=== PATIENT | male | born 1960 | race Caucasian/White ===

== ENCOUNTER 2016-06-22 22:07 | Emergency (ER) | payer BC ==
--- NOTE | ~2016-06-22 | EKG ---
PATIENT: MONE BONNER UNIT #: [id number] Ventricular Rate: 90 BPM Atrial Rate: 90 BPM P-R Interval: 172 ms QRS Duration: 98 ms Q-T Interval: 336 ms QTC Calculation(Bezet): 411 ms P [place]: 51 degrees Calculated R [place]: 88 degrees Calculated T [place]: 49 degrees Diagnosis Line: Normal sinus rhythm Diagnosis Line: Normal ECG Diagnosis Line: When compared with ECG of 15-OCT-2013 19:39, Diagnosis Line: Questionable change in QRS duration Diagnosis Line: Confirmed by IRMA CAR MD ([id number]) on Diagnosis Line: 06/25/2016 12:03:24 PM INTERPRETING MD: JOCELINE HERNANDEZ
--- NOTE | ~2016-06-22 | CR63 ---
[facility] A Service of [facility] RADIOLOGY TEXT RESULTS PATIENT: MONE BONNER LOCATION: SED : 58 UNIT #: [id number] AGE: [address]: Miles Olivia MD SEX: M ORDER DR: [id number] [place] [address] [id number] E MR#: [id number] Acc #: [id number] NAME: MONE BONNER : 1960 SEX: M STUDY DATE/TIME: 06/22/2016 22:44 UNIT: SED ROOM: STUDY DESCRIPTION: CR Chest 2 View Attending Physician: Miles Olivia M.D. Ordering Physician: Miles Olivia M.D. Primary Care Physician: Primary Care Physician No MEDICAL IMAGING REPORT This report is preliminary unless electronic signature is present. EXAM Two-view chest HISTORY Cough x1 month, fever. COMPARISON 10/15/2013 FINDINGS 2 views of the chest demonstrates right middle lobe infiltrate with obscuration of a portion of the right heart border. Left lung remains clear. Heart, mediastinum, great vessels and bony thorax appear normal. Partially visualized is lower cervical spine fixation instrumentation. IMPRESSION Right perihilar prominence with a patchy right middle lobe infiltrate. Findings most compatible with acute infectious pneumonia. Recommend clinical and radiographic follow up to resolution. Dictated by... Rj Quinones M.D. THIS IS AN ELECTRONICALLY VERIFIED REPORT Rj Quinones M.D. at 06/23/2016 2:04 PM SIDDHARTHAS/maurisio TD: 06/22/2016 23:29 JOB #: [id number] MEDICAL IMAGING REPORT [facility] A Service of [facility] RADIOLOGY TEXT RESULTS PATIENT: MONE BONNER LOCATION: SED : 58 UNIT #: [id number] AGE: [address]: Miles Olivia MD SEX: M ORDER DR: Page 1 of 1
[~2016-06-22 22:07] MED LIST: ALB/IPRATROPIUM/1 E1 INH; ALBUTEROL 0.5ML INH; ASPIRIN81 M1 PO; BENZONATATE PO; CIPRO PO; FIORICET PO; FLAGYL PO; FLEXERIL10 MG PO; HCTZ; HYDROCHLOROTHIA25 MG PO; IBUPROFEN800 MG PO; KEFLEX PO; LIPITOR; LISINOPRIL; LISINOPRIL PO; LOPRESSOR; LOPRESSOR PO; LORTAB 5/500 TA1 TA1 PO; METOPROLOL-HCTZ1 TA1 PO; METOPROLOL/HCTZ PO; NO MEDICATIONS; NORCO 10/3251 TAB PO; NORVASC; PEN-VEE K PO; PRAVACHOL20 MG PO; PREDNISONE PO; ROBITUSSIN ALL118 ML PO; SILVADENE TOP; SIMVASTATIN20 MG PO; TOPAMAX25 MG DOB; VICODIN 5/1 TAB 5/50 PO; ZESTRIL10 M1 PO; ZITHROMAX PO
[2016-06-22 22:44] LABS: BASOPHIL% 0.4 % (0-2.5); DIFF IND NO; EOSINOPHIL% 0.4 % (0.0-7.0); HEMATOCRIT 38.9 % (38.0-50.0); HEMOGLOBIN 13.5 gm/dL (13.0-16.0); LYMPHOCYTE# 1.2 X10e3 (1.0-3.5); LYMPHOCYTE% 11.9 % (17.0-45.0); MEAN CELL VOLUME 85.2 FL (83-96); MEAN CORPUSCULAR HEMOGLOBIN 29.6 PG (28-34); MEAN CORPUSCULAR HGB CONC 34.7 g/dL (30-36); MEAN PLATELET VOLUME 8.7 FL (6.5-11.5); MONOCYTE# 0.9 X10e3 (0-1.0); MONOCYTE% 8.3 % (3.0-12.0); NEUTROPHIL# 8.2 X10e3 (1.5-7.1); PLATELET COUNT 185 X10e3 (140-420); RED BLOOD COUNT 4.57 X10e (3.90-5.60); RED CELL DISTRIBUTION WIDTH 13.5 % (11.0-15.5); WHITE BLOOD COUNT 10.4 X10e3 (4.0-10.5)
[2016-06-22 22:52] LABS: INFLUENZA A NEG (NEG); INFLUENZA B NEG (NEG)
[2016-06-22 22:58] LABS: CALCIUM SERUM 8.8 mg/dL (8.4-10.2); GLOM FILT RATE Estimated 83.8 mL/min (>60); POTASSIUM 3.7 mmol/L (3.5-5.1)
[2016-06-22 22:59] LABS: POC - CKMB 1.5 ng/mL (0.0-7.9); POC - TROPONIN <0.05 ng/mL (<=0.05)
== END 2016-06-23 01:19 | disposition home or self-care (01) ==
LOC: SED 22:07
PROVIDERS: Emergency Medicine
DX: J18.9 Pneumonia, unspecified organism (principal); I10 Essential (primary) hypertension; I25.10 Atherosclerotic heart disease of native coronary artery without angina pectoris; E78.5 Hyperlipidemia, unspecified
CPT/HCPCS: 36415; 71020; 80048; 82553; 84484; 85025; 87651; 87804; 93005; 96374; 99283; J1956

== ENCOUNTER 2016-11-16 09:03 | Inpatient (IN) | payer BC ==
[~2016-11-16] VITALS: Ht 172.7 cm; Wt 82.5 kg
--- NOTE | ~2016-11-16 | HP ---
Unit #: [id number] #: [id number] Patient: MONE BONNER [id number] [address] [place], [place] [address] [id number] I MR#: [id number] NAME: MONE BONNER ROOM: 55 Age: 56 Sex: M Admission Date: 11/16/2016 : 1960 Attending Physician: Lalo Morejon M.D. Primary Care Physician: No Primary Care Physician HISTORY AND PHYSICAL HISTORY OF PRESENT ILLNESS This is 56-year-old male with a prior history of hypertension, hyperlipidemia, ulcerative colitis and a cardiac cath in February 2012, which showed LAD 30 to 40% at the ostium, left circumflex 20%, RCA mild luminal irregularities, and an LVEF of 60 to 65%. He also had a CVA two years ago reportedly. He presented to the ER with reports of mid chest pressure that had been going on off and on since Monday. The tightness and pressure was accompanied with shortness of air, nausea and pain from his left elbow to his shoulder and left neck. The pain worsens with activity. In the ER, the pain increased with meds but did persist near the evening. He describes the pain as tight pressure, rated about a 5/10 on a pain scale with accompanied left arm and neck pain. He currently denies any diaphoresis, shortness of air or nausea with the pain. He was given 4 mg of morphine this morning and it decreased the pain to a 4/10. His EKG showed sinus rhythm with inverted T waves diffusely. Point of care troponin was elevated at 0.15 with a repeat troponin of 0.14 and 0.12 this morning. He denies a prior history of cardiac disease and him and his do not remember him ongoing a cardiac cath in 2011, although it is documented. PAST MEDICAL HISTORY 1. Hypertension. 2. Hyperlipidemia. 3. History of ulcerative colitis. 4. Cardiac cath, February 2012, which showed nonobstructive disease. PAST SURGICAL HISTORY 1. Femur surgery. 2. Neck surgery. 3. Cardiac cath in 2011. SOCIAL HISTORY He lives with his . 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 He denies smoking. He states he is a former heavy drinker but he quit four years ago. He denies illicit drug use. FAMILY HISTORY He denies a family history of premature coronary artery disease. Both his parents are from cancer. His sister has colon cancer. ALLERGIES No known allergies. HOME MEDICATIONS Unit #: [id number] #: [id number] Patient: MONE BONNER Aspirin 325 mg p.o. daily. REVIEW OF SYSTEMS A 10-point review of systems was conducted and was otherwise negative except for what was stated in the HPI. PHYSICAL EXAMINATION GENERAL APPEARANCE: This is a pleasant, 56-year-old male resting in bed, in no acute distress. VITAL SIGNS: Temp 97.9. Heart rate 66. Respiratory rate 18. Blood pressure 142/66. HEENT: Head is atraumatic and normocephalic. Pupils are equal and reactive to light. Mucous membranes are moist and intact. NECK: Supple. Trachea is midline. No JVD. LUNGS: Clear. Nonlabored respirations. CARDIOVASCULAR: S1, S2. Regular rate and rhythm. No significant murmurs, rubs or gallops. ABDOMEN: Soft, nontender, nondistended. Bowel sounds are positive. EXTREMITIES: Pulses are palpable. No pedal edema. No cyanosis. NEUROLOGIC: Alert, oriented x3. Follows all commands equally. Moves extremities without difficulty. DIAGNOSTIC STUDIES LABORATORY: Sodium 137, potassium 3.4, chloride 100, BUN 16, creatinine one, glucose 107, magnesium 1.9. BNP 78. Hemoglobin 14.9, hematocrit 42.4, WBC count 7.7, platelets 198. Point of care troponin 0.15. Repeat troponin 0.14. Followup 0.12. IMAGING: Chest x-ray shows mild cardiac enlargement unchanged from June of 2016. CARDIOVASCULAR: EKG shows sinus rhythm with diffusely inverted T waves. ASSESSMENT 1. Chest pain. 2. Indeterminate troponins, peak 0.14. 3. Hypertension. 4. Hyperlipidemia. 5. History of CVA. PLAN He is currently having chest pain, although it is reduced some with morphine. We will start heparin and nitroglycerin drip. Plan for a cardiac cath this morning with Dr. Anguiano. Continue aspirin and statin. Replace potassium. EKG now. Was discussed with Dr. Morejon and Dr. Anguiano. Dictated by Chikis Verdin APRN for Lalo Morejon M.D. JANNETTE/lenard TD: 11/17/2016 14:19 JOB #: [id number] Unit #: [id number] #: [id number] Patient: WHITE,MONE HISTORY AND PHYSICAL Page 1 of 1 X X HISTORY AND PHYSICAL
--- NOTE | ~2016-11-16 | EKG ---
PATIENT: MONE BONNER UNIT #: [id number] Ventricular Rate: 78 BPM Atrial Rate: 78 BPM P-R Interval: 170 ms QRS Duration: 114 ms Q-T Interval: 416 ms QTC Calculation(Bezet): 474 ms P [place]: 39 degrees Calculated R [place]: 82 degrees Calculated T [place]: 36 degrees Diagnosis Line: Normal sinus rhythm Diagnosis Line: T wave abnormality, consider anterolateral Diagnosis Line: ischemia Diagnosis Line: Prolonged QT Diagnosis Line: Abnormal ECG Diagnosis Line: When compared with ECG of 22-JUN-2016 22:12, Diagnosis Line: T wave inversion now evident in Anterolateral Diagnosis Line: leads Diagnosis Line: QT has lengthened Diagnosis Line: Confirmed by IRMA CAR MD ([id number]) on Diagnosis Line: 11/18/2016 10:51:15 AM INTERPRETING MD: JOCELINE HERNANDEZ
--- NOTE | ~2016-11-16 | EKG ---
PATIENT: MONE BONNER UNIT #: [id number] Ventricular Rate: 87 BPM Atrial Rate: 87 BPM P-R Interval: 168 ms QRS Duration: 114 ms Q-T Interval: 378 ms QTC Calculation(Bezet): 454 ms P [place]: 43 degrees Calculated R [place]: 84 degrees Calculated T [place]: 30 degrees Diagnosis Line: Normal sinus rhythm Diagnosis Line: T wave abnormality, consider anterolateral Diagnosis Line: ischemia Diagnosis Line: Abnormal ECG Diagnosis Line: When compared with ECG of 17-NOV-2016 08:57, Diagnosis Line: (unconfirmed) Diagnosis Line: No significant change was found Diagnosis Line: Confirmed by KIRIT KHAN MD ([id number]) on 11/23/2016 Diagnosis Line: 7:32:18 AM INTERPRETING MD: BILL HERNANDEZ
--- NOTE | ~2016-11-16 | EKG ---
PATIENT: MONE BONNER UNIT #: [id number] Ventricular Rate: 75 BPM Atrial Rate: 75 BPM P-R Interval: 172 ms QRS Duration: 94 ms Q-T Interval: 408 ms QTC Calculation(Bezet): 455 ms P [place]: 27 degrees Calculated R [place]: 80 degrees Calculated T [place]: 38 degrees Diagnosis Line: Normal sinus rhythm Diagnosis Line: ST and T wave abnormality, consider lateral ischemia Diagnosis Line: Abnormal ECG Diagnosis Line: When compared with ECG of 16-NOV-2016 18:38, Diagnosis Line: (unconfirmed) Diagnosis Line: No significant change was found Diagnosis Line: Confirmed by KIRIT KHAN MD ([id number]) on 11/23/2016 Diagnosis Line: 7:29:17 AM INTERPRETING MD: BILL HERNANDEZ
--- NOTE | ~2016-11-16 | CR72 ---
[facility] A Service of [facility] RADIOLOGY TEXT RESULTS PATIENT: MONE BONNER LOCATION: [facility] 558-01 : 58 UNIT #: [id number] AGE: [address]: Lalo Morejon MD SEX: M ORDER DR: [id number] [address] [address] [id number] E MR#: [id number] Acc #: [id number] NAME: MONE BONNER : 1960 SEX: M STUDY DATE/TIME: 11/16/2016 9:23 UNIT: SED ROOM: STUDY DESCRIPTION: CR Chest Single View Portable Attending Physician: Nora Rosen M.D. Ordering Physician: Nora Rosen M.D. Primary Care Physician: No Primary Care Physician MEDICAL IMAGING REPORT This report is preliminary unless electronic signature is present. EXAM Portable chest x-ray 11/16/2016. HISTORY Chest pain midsternal, out of breath. Short of air. 3 days duration. TECHNIQUE AP radiograph of the chest is presented. COMPARISON 06/22/2016. FINDINGS Mild cardiac enlargement. Not significantly changed from prior examination given lower lung volumes. Lung volumes lower, but there is no clear indication of acute infectious or inflammatory disease, pleural effusion or pneumothorax. No suspicious nodule. The bony structures are unremarkable. Visualized abdomen unremarkable. Dictated by... Miles Avina M.D. THIS IS AN ELECTRONICALLY VERIFIED REPORT Miles Avina M.D. at 11/17/2016 7:30 PM WILFREDO/apple TD: 11/16/2016 14:56 JOB #: [id number] MEDICAL IMAGING REPORT Page 1 of 1
--- NOTE | ~2016-11-16 | EKG ---
PATIENT: MONE BONNER UNIT #: [id number] Ventricular Rate: 52 BPM Atrial Rate: 52 BPM P-R Interval: 188 ms QRS Duration: 106 ms Q-T Interval: 424 ms QTC Calculation(Bezet): 394 ms P [place]: 46 degrees Calculated R [place]: 102 degrees Calculated T [place]: 55 degrees Diagnosis Line: Sinus bradycardia with sinus arrhythmia Diagnosis Line: Rightward axis Diagnosis Line: T wave abnormality, consider anterior ischemia Diagnosis Line: Abnormal ECG Diagnosis Line: When compared with ECG of 17-NOV-2016 14:53, Diagnosis Line: (unconfirmed) Diagnosis Line: Vent. rate has decreased BY 35 BPM Diagnosis Line: QT has shortened Diagnosis Line: Confirmed by KIRIT KHAN MD ([id number]) on 11/23/2016 Diagnosis Line: 7:32:47 AM INTERPRETING MD: BILL HERNANDEZ
--- NOTE | ~2016-11-16 | DS ---
Unit #: [id number] #: [id number] Patient: MONE BONNER [id number] [address] [address] [id number] I MR#: [id number] NAME: MONE BONNER ROOM: [facility] Age: 56 Sex: M Admission Date: 11/16/2016 : 1960 Discharge Date: 11/18/2016 Attending Physician: Lalo Morejon M.D. Primary Care Physician: Primary Care Physician No DISCHARGE SUMMARY ADMITTING DIAGNOSES 1. Chest pain with indeterminate troponin. 2. Hypertension. 3. Hyperlipidemia. 4. History of cerebrovascular accident. DISCHARGE DIAGNOSES 1. Chest pain with indeterminate troponin. 2. Hypertension. 3. Hyperlipidemia. 4. History of cerebrovascular accident. 5. Coronary artery disease. 6. Hyperlipidemia. PROCEDURES PERFORMED On 11/17/2016, the patient had a 2D echo. This has been completed, but the dictated report is not currently available. On 11/17/2016, the patient had a left heart catheterization with Dr. Anguiano, which showed a normal left main, left circumflex, and RCA. The patient did have a proximal 99% LAD stenosis and 50% mid LAD stenosis and distal LAD was normal. The patient received angioplasty and stent placement to the LAD lesion with a Synergy stent. There were no perioperative complications. At the time of discharge, the patient without complaints of chest pain. HOSPITAL COURSE The patient is a 56-year-old male with history of CVA, hypertension, and hyperlipidemia, who presented to the Emergency Department with complaints of chest pain. His troponin was in the indeterminate range at 0.12 to 0.14 and with his ongoing chest pain, cardiac catheterization was advised. This was performed by Dr. Anguiano as discussed above. Again, at the time of discharge, the patient without complains chest pain. His vitals are stable. Blood pressure is 148/86, heart rate of 70 and regular, respirations 18 and regular, temperature is 98.1, and O2 saturation 98% on room air. LABORATORY DATA Hemoglobin A1c 5.2. Sodium 136, potassium 3.7, chloride 104, CO2 of 29, glucose 116, BUN 17, and creatinine 0.9. Cholesterol 155, triglycerides 114, LDL 101, and HDL 31. Unit #: [id number] #: [id number] Patient: MONE BONNER White blood cells 6.2, hemoglobin 13.2, hematocrit 39.3, and platelets are 193. DISCHARGE MEDICATIONS Lipitor 80 mg at bedtime, Norvasc 5 mg at bedtime, Lopressor 25 mg twice daily, hydrochlorothiazide 25 mg daily, lisinopril 20 mg at bedtime, Brilinta 90 mg twice daily, and aspirin 81 mg daily. The patient was advised to limit lifting over 10 pounds for the next 5 days. He will follow up with Dr. Morejon in approximately 4 weeks. Cardiac rehab has also been consulted and this was encouraged. Dictated by... Wilma Javier, P.A.C. for Lalo Morejon M.D. CMG/anatoliy TD: 11/21/2016 06:50 JOB #: [id number] DISCHARGE SUMMARY Page 1 of 1 X X DISCHARGE SUMMARY
--- NOTE | ~2016-11-16 | EKG ---
PATIENT: MONE BONNER UNIT #: [id number] Ventricular Rate: 62 BPM Atrial Rate: 62 BPM P-R Interval: 178 ms QRS Duration: 102 ms Q-T Interval: 384 ms QTC Calculation(Bezet): 389 ms P [place]: 21 degrees Calculated R [place]: 72 degrees Calculated T [place]: 44 degrees Diagnosis Line: Normal sinus rhythm Diagnosis Line: T wave abnormality, consider lateral ischemia Diagnosis Line: Abnormal ECG Diagnosis Line: When compared with ECG of 22-JUN-2016 22:12, Diagnosis Line: T wave inversion now evident in Lateral leads Diagnosis Line: Confirmed by IRMA CAR MD ([id number]) on Diagnosis Line: 11/18/2016 10:41:56 AM INTERPRETING MD: JOCELINE HERNANDEZ
[2016-11-16] MEDS ORDERED: ASPIRIN81 MG PO (09:24)
[2016-11-16 09:28] LABS: BASOPHIL# 0.1 X10e3 (0-0.3); DIFF IND NO; EOSINOPHIL# 0.1 X10e3 (0-0.7); EOSINOPHIL% 0.9 % (0.0-7.0); HEMATOCRIT 42.4 % (38.0-50.0); HEMOGLOBIN 14.9 gm/dL (13.0-16.0); LYMPHOCYTE% 26.1 % (17.0-45.0); MEAN CELL VOLUME 86.8 FL (83-96); MEAN CORPUSCULAR HEMOGLOBIN 30.4 PG (28-34); MEAN CORPUSCULAR HGB CONC 35.1 g/dL (30-36); MEAN PLATELET VOLUME 8.2 FL (6.5-11.5); MONOCYTE# 0.4 X10e3 (0-1.0); MONOCYTE% 5.4 % (3.0-12.0); NEUTROPHIL# 5.1 X10e3 (1.5-7.1); NEUTROPHIL% 66.6 % (40-75); PLATELET COUNT 198 X10e3 (140-420); RED BLOOD COUNT 4.88 X10e (3.90-5.60); RED CELL DISTRIBUTION WIDTH 13.3 % (11.0-15.5); WHITE BLOOD COUNT 7.7 X10e3 (4.0-10.5)
[2016-11-16 09:39] LABS: PROTHROMBIN TIME (PATIENT) 11.6 SECONDS (9.5-12.4)
[2016-11-16 09:41] LABS: POC - CKMB 4.9 ng/mL (0.0-7.9)
[2016-11-16 09:42] LABS: POC - TROPONIN 0.15 ng/mL (<=0.05)
[2016-11-16 09:46] LABS: PARTIAL THROMBOPLASTIN TIME 28.2 SECONDS (25.6-38.1)
[2016-11-16 09:48] LABS: ALBUMIN SERUM 4.5 g/dL (3.5-5.0); BILIRUBIN, DIRECT 0.1 mg/dL (0.0-0.2); BILIRUBIN,INDIRECT 0.5 mg/dL (0.0-0.9); BILIRUBIN,TOTAL 0.6 mg/dL (0.2-2.0); CALCIUM SERUM 9.1 mg/dL (8.4-10.2); GLOM FILT RATE Estimated 83.2 mL/min (>60); MAGNESIUM 2.1 mg/dL (1.6-3.0); POTASSIUM 3.5 mmol/L (3.5-5.1); PROTEIN TOTAL SERUM 7.6 g/dL (6.0-8.3)
[2016-11-16 10:26] LABS: URINE APPEARANCE CLEAR; URINE BILIRUBIN NEG (NEG); URINE BLOOD NEG (NEG); URINE COLOR YELLOW; URINE GLUCOSE NEG (NORM); URINE KETONE NEG (NEG); URINE LEUKOCYTE ESTERASE NEG (NEG); URINE NITRATE NEG (NEG); URINE PH 5.5 (5-8); URINE PROTEIN NEG (NEG); URINE SPECIFIC GRAVITY <=1.005 (1.003-1.035); URINE UROBILINOGEN 0.2 MG/DL (NORM)
[2016-11-16 10:27] LABS: MICRO INDICATED? NO; URINE SOURCE CLEAN CATCH
[2016-11-16 10:35] LABS: AMPHETAMINE NEG (NEG); BARBITURATES NEG (NEG); BENZODIAZEPINES NEG (NEG); COCAINE NEG (NEG); MARIJUANA NEG (NEG); OPIATES NEG (NEG); TRICYCLIC ANTIDEPRESSANTS NEG (NEG); U METHADONE NEG (NEG)
[2016-11-16 11:20] LABS: POC - CKMB 3.5 ng/mL (0.0-7.9); POC - MYOGLOBIN 92.2 ng/mL (0.0-169.0); POC - TROPONIN 0.14 ng/mL (<=0.05)
[2016-11-16 19:26] LABS: PARTIAL THROMBOPLASTIN TIME 28.4 SECONDS (23.5-31.3); PROTHROMBIN TIME (PATIENT) 10.7 SECONDS (10.0-11.7)
[2016-11-16 19:30] LABS: CALCIUM SERUM 9.4 mg/dL (8.4-10.2); GLOM FILT RATE Estimated 83.2 mL/min (>60); MAGNESIUM 1.9 mg/dL (1.6-3.0); POTASSIUM 3.4 mmol/L (3.5-5.1)
[2016-11-17 08:49] LABS: BUN/CREATININE RATIO 13.07; CALCIUM SERUM 9.2 mg/dL (8.4-10.2); CREATININE SERUM 1.3 mg/dL (0.6-1.4); GLOM FILT RATE Estimated 60.6 mL/min (>60)
[2016-11-17 08:52] LABS: CHOLESTEROL 195 mg/dL (0-200); HDL CHOLESTEROL 33 mg/dL (29-75); LDL CHOLESTEROL 129 mg/dL (-130); LDL/HDL RATIO 4 RATIO (0-4); TRIGLYCERIDES 163 mg/dL (10-160)
[2016-11-17 21:42] LABS: ANGIO %MB 3.6 % (0.0-4.0); ANGIO MB 2.8 ng/ml
[2016-11-18 04:13] LABS: HEMATOCRIT 39.3 % (38.0-50.0); HEMOGLOBIN 13.2 gm/dL (13.0-16.0); MEAN CORPUSCULAR HEMOGLOBIN 29.5 PG (28-34); MEAN CORPUSCULAR HGB CONC 33.5 g/dL (30-36); MEAN PLATELET VOLUME 8.5 FL (6.5-11.5); RED BLOOD COUNT 4.47 X10e (3.90-5.60); RED CELL DISTRIBUTION WIDTH 13.3 % (11.0-15.5); WHITE BLOOD COUNT 6.2 X10e3 (4.0-10.5)
[2016-11-18 04:38] LABS: ANGIO %MB 4.5 % (0.0-4.0); ANGIO MB 3.1 ng/ml; BUN/CREATININE RATIO 18.88; CALCIUM SERUM 8.6 mg/dL (8.4-10.2); CREATININE SERUM 0.9 mg/dL (0.6-1.4); GLOM FILT RATE Estimated 94.5 mL/min (>60); POTASSIUM 3.7 mmol/L (3.5-5.1)
[2016-11-18] MEDS ORDERED: LIPITOR80 MG PO (13:20)
[2016-11-18] MEDS ORDERED: NORVASC PO (13:20)
[2016-11-18] MEDS ORDERED: LOPRESSOR PO (13:21)
[2016-11-18] MEDS ORDERED: LISINOPRIL PO (13:22)
[2016-11-18] MEDS ORDERED: HCTZ PO (13:22)
[2016-11-18] MEDS ORDERED: BRILINTA90 MG PO (13:23)
== END 2016-11-18 16:00 | disposition home or self-care (01) | DRG 247 ==
LOC: SED 09:03 → C5B 11:24 → SED 11:27 → C5B 11-18 16:00
PROVIDERS: Internal Medicine Cardiovascular Disease; Student in an Organized Health Care Education/Training Program
PROC: 027034Z Dilation of Coronary Artery, One Artery with Drug-eluting Intraluminal Device, Percutaneous Approach (ICD-10-PCS; principal; 2016-11-17)
PROC: 4A023N7 Measurement of Cardiac Sampling and Pressure, Left Heart, Percutaneous Approach (ICD-10-PCS; 2016-11-17)
PROC: B215YZZ Fluoroscopy of Left Heart using Other Contrast (ICD-10-PCS; 2016-11-17)
PROC: B211YZZ Fluoroscopy of Multiple Coronary Arteries using Other Contrast (ICD-10-PCS; 2016-11-17)
PROC: B24BZZZ Ultrasonography of Heart with Aorta (ICD-10-PCS; 2016-11-17)
DX: R07.9 Chest pain, unspecified (principal); I10 Essential (primary) hypertension; I25.10 Atherosclerotic heart disease of native coronary artery without angina pectoris; R79.89 Other specified abnormal findings of blood chemistry; E78.5 Hyperlipidemia, unspecified; Z86.73 Personal history of transient ischemic attack (TIA), and cerebral infarction without residual deficits; Z79.82 Long term (current) use of aspirin; Z82.49 Family history of ischemic heart disease and other diseases of the circulatory system; Z80.9 Family history of malignant neoplasm, unspecified; Z80.0 Family history of malignant neoplasm of digestive organs
CPT/HCPCS: 36415; 71010; 80048; 80061; 80076; 80307; 81003; 82550; 82553; 82947; 83036; 83735; 83874; 83880; 84443; 84484; 85025; 85027; 85347; 85610; 85730; 93005; 93306; 99152; 99153; 99285; C1725; C1769; C1874; C1887; C1894; J0360; J1644; J1650; J1940; J2250; J2270; J2405; J3010